=== PATIENT | male | born 1950 ===

== ENCOUNTER 2020-07-01 07:58 | Outpatient (CLI) | payer MEDICARE, OTHER ==
--- NOTE | 2020-07-01 08:57 | MRI ---
MRI Cervical spine without contrast: HISTORY: Cervical radiculopathy. Neck pain. COMPARISON: None FINDINGS: The craniocervical junction is unremarkable. No significant cord signal abnormality. Paravertebral soft tissues have a normal appearance and normal signal intensity. There is fusion of the left-sided facet joints at the C2-3 and T3-4 levels. C1-2:No significant stenosis. C2-3: There is no disc bulge or disc herniation. Central spinal canal and right neural foramen are pa tent. Mild left-sided neural foraminal narrowing is present due to mild facet hypertrophic changes on the left. C3-4: No disc bulge or disc herniation. Central spinal canal and right neural foramen are patent. The re is mild left-sided neural foraminal narrowing present related to facet hypertrophic changes. C4-5: No disc bulge or disc herniation. Facet hypertrophic changes are seen bilaterally. However, the re is no significant neural foraminal narrowing present. C5-6: Loss of intervertebral disc height. There is broad-based disc osteophyte complex present with f acet degenerative changes. Findings result in mild generalized narrowing of the central spinal canal with slight flattening the anterior aspect of the spinal cord. Mild to moderate right and sever e left-sided neural foraminal narrowing are present. C6-7: Loss of intervertebral disc height. Broad-based disc osteophyte complex is present. This result s in mild generalized narrowing central spinal canal with slight flattening of the anterior aspect of the spinal cord. Mild to moderate right and severe left-sided neural foraminal narrowing are prese nt. C7-T1: There is no disc bulge or disc herniation. The central spinal canal and neural foramina are pa tent. IMPRESSION: Degenerative changes in the cervical spine as described above. Findings are greatest at the C5-6 and C6-7 levels where there is severe left-sided neural foraminal narrowing at these levels.
--- NOTE | 2020-07-01 09:56 | MRI ---
MRI LUMBAR SPINE NONCONTRAST: DATE: 07/01/2020 HISTORY: 69-year-old male with lumbar radiculopathy and low back pain COMPARISON: 04/03/2011 FINDINGS: For the purposes of this report, it will be assumed that there are 5 lumbar-type vertebrae. Vertebral body heights are maintained. Minimal disc space narrowing at multiple levels with disc desiccation. No severe disc space narrowing at any level. Alignment is normal. No scoliosis. Conus medullaris terminates at T12-L1. Normal bone marrow signal. T12-L1:Essentially normal. L1-2:Mild disc bulge. Mild ligamentum flavum thickening. Very mild central spinal canal stenosis. No high-grade neural foraminal stenosis. L2-3:Disc bulge. Mild to moderate ligamentum flavum thickening. Mild bilateral facet DJD. No high-gra de neural foraminal stenosis. Mild central spinal canal stenosis. L3-4:Again noted is the small left foraminal extruded component of disc herniation (with signal inten sity different from that of apparent signal). It is now slightly larger in size, and it superiorly displaces that the exiting left L3 nerve root greater than previously, causing moderate left neural f oraminal stenosis. No high-grade right neural foraminal stenosis. Mild disc bulge. Mild central spinal canal stenosis. Mild to moderate ligamentum flavum thickening. Mild bilateral facet DJD. L4-5:Disc bulge. No high-grade neural foraminal stenosis. Mild ligamentum flavum thickening. Mild regina ateral facet DJD. No central spinal canal stenosis. L5-S1:Mild bilateral facet DJD. No central or neural foraminal stenosis. IMPRESSION: 1) the left far lateral, foraminal small disc extrusion at L3-4 is slightly larger than before, and i mpinges on the exiting left L3 nerve root greater than before. 2) overall mild lumbar spondylosis, with multilevel mild degenerative disc disease and mild facet ost eoarthrosis. 3) no high-grade central spinal canal stenosis at any level.
== END 2020-07-01 07:59 | disposition home or self-care (01) ==
LOC: BICMRI 07:58
PROVIDERS: ATTEND Anesthesiology
DX: M51.16 Intervertebral disc disorders with radiculopathy, lumbar region (principal); M47.22 Other spondylosis with radiculopathy, cervical region; M47.26 Other spondylosis with radiculopathy, lumbar region; M48.02 Spinal stenosis, cervical region
CPT/HCPCS: 72141; 72148